=== PATIENT | male | born 1935 | race Caucasian/White ===

== ENCOUNTER 2017-07-26 12:16 | Inpatient (IN) | payer MEDICARE, BC ==
[~2017-07-26] VITALS: Ht 165.1 cm; Wt 63.3 kg
--- NOTE | ~2017-07-26 | HEMODYNAMI ---
PATIENT:EMILEE CHAPA MEDICAL RECORD: [id number] : 39 LOCATION:D. D.2113 ADMISSION DATE: 07/26/17 Generatedon:07/27/201712:53 Patient name: EMILEE CHAPA Patient #: [id number] SSN: DO B: 1935 Date of study: 07/27/2017 Page: Of Hemodynamic Procedure Report Patient Data Patient Demographics Procedure consent was obtained First Name: EMILEE Gender: Male Last Name: EDUARD : 1935 [facility] Initial: REGINALD Age: 81 year(s) Patient #: [id number] Race: Unknown Additional ID: [id number] Contact details [address]: [address] [place] [address] [place] State: [place] City: [place] Zip code: [address] Past Medical History Allergies Allergen Reaction Date Comments Reported Other allergy 09/15/2015 statins Admission Admission Data Admission Date: 07/26/2017 Admission Time: 17:01 Arrival Date: 07/27/2017 Arrival Time: 17:01 Admit Source: Other Insurance Payor: Medicare Room #: D.2113 Height (in.): 64.96 BSA: 1.8 (m2) Height (cm.): 165 BMI: 26.66 (kg/m2) Weight (lbs.): 160 Weight (kg.): 72.57 Procedure Procedure Types Cath Procedure Diagnostic Procedure LHC LH w/Coronaries Temporary Pacemaker Sedation Charges Moderate Sedation up to 30 minutes Procedure Description Procedure Date Procedure Date: 07/27/2017 Procedure Start Time: 12:28 Procedure End Time: 12:49 Procedure Staff Name Function Robinson Abdalla MD Performing Physician Renetta Glaser RT Monitor Jeremy Garza RN Nurse Sisi Lopez RT Scrub Procedure Data Cath Procedure Fluoroscopy Diagnostic fluoroscopy Total fluoroscopy Time: 3 time: 3 min min Diagnostic fluoroscopy Total fluoroscopy dose: 339 dose: 339 mGy mGy Contrast Material Contrast Material Type Amount (ml) Isovue 300 48 Entry Location Entry Primary Successful Side Size Upsize Upsize Entry Closure Succes sful Closure Location (Fr) 1 (Fr) 2 (Fr) Remarks Device Remarks Femoral Right 5 Fr Exoseal artery Femoral Right 6 Fr Sheath vein Short sutured in place Estimated blood loss: 5 ml Diagnostic catheters Device Type Used For End Catheter Placement MULTIPACK JL 4.0 5Fr Left Coronary catheter Angiography MULTIPACK 3DRC 5Fr Right Coronary catheter Angiography MULTIPACK Pigtail 5 Fr LV Angiography catheter Procedure Complications No complications Procedure Medications Medication Administration Route Dosage Oxygen NC 3 l/min Lidocaine 2% added to field 20 Heparin Flush Bag added to field 2 bags (1000units/500ml NS) 0.9% NaCl I.V. 100 ml/hr Versed I.V. 0.5 mg Fentanyl I.V. 25 mcg Oxygen 16 l/min Epinephrine I.V. 1 mg Amiodarone Loading 150 mg Dose (150mg/100ml D5W) Atropine I.V. 1 mg Oxygen NRB 16 l/min Hemodynamics Rest BSA: 1.8 (m2) O2 Consumption: Estimated: 173.62 (ml/min) O2 Consumption indexed: Estimated:96.46 (ml/min/m) Heart Rate: 23 (bpm) Pressure Samples Time Site Value (mmHg) Purpose Heart Use Rate(bpm) 12:39 LV 108/17,27 Snapshot 106 12:40 AO 92/45(62) Pullback 66 12:40 LV 85/17,33 Pullback 66 Gradients Valve Time Site 1 Site 2 Mean SEP/DFP Peak To Heart Use (mmHg) (sec/min) Peak Rate (mmHg) (bpm) Aortic 12:40 LV AO 0 8 0 66 85/17,33 92/45(62) Calculations Valve P-P Mean Valve Index Valve Source Name Gradient Area Flow (cm2) Aortic 0 0 0 0 Snapshots Pre Cath Intra NCS Post Cath Vital Signs Time Heart Resp SPO2 NIBP (mmHg) Rhythm Pain Sedation Rate (ipm) (%) Status Level (bpm) 12:14:50 115 20 97 103/66(86) NSR 0 (11) 9(A) , No pain 12:18:54 112 21 98 101/66(77) NSR 0 (11) 9(A) , No pain 12:22:58 119 20 96 104/66(81) NSR 0 (11) 9(A) , No pain 12:27:03 118 22 96 87/62(69) NSR 0 (11) 9(A) , No pain 12:32:05 31 24 95 76/56(72) NSR 0 (11) 9(A) , No pain 12:35:56 104 22 94 170/103(128) NSR 0 (11) 9(A) , No pain 12:40:12 64 23 100 131/57(85) NSR 0 (11) 9(A) , No pain 12:44:22 79 25 94 64/39(50) NSR 0 (11) 9(A) , No pain 12:48:19 75 24 93 64/37(47) NSR 0 (11) 9(A) , No pain Medications Time Medication Route Dose Verified Delivered Reason Notes E ffectiveness by by 12:14:07 Oxygen NC 3 Robinson Jeremy used for l/min St Nilson Garza RN procedure 12:14:14 Lidocaine 2% added 20ml Robinson Bowers for local to vial [facility] anesthetic field MD RAY 12:14:20 Heparin Flush added 2 Robinson Bowers used for Bag to bags [facility] procedure (1000units/500ml field MD RAY NS) 12:14:46 0.9% NaCl I.V. 100 Robinson Luna Per ml/hr St Nilson villanueva MD 12:16:28 Versed I.V. 0.5 Robinson Luna for sedation mg St Nilson Garza RN, MD 12:16:37 Fentanyl I.V. 25 Robinson Luna for sedation mcg St Nilson Garza RN, MD 12:32:52 Atropine I.V. 1 mg [address] Luna For [facility] Nilson Garza RN bradycardia 12:33:35 Oxygen Ambu in 16 Robinson Luna unresponsive use l/min St Nilson Garza RN, MD 12:33:42 Epinephrine I.V. 1 mg Robinson Nicolas RN, MD 12:35:15 Oxygen NRB 16 Robinson Vergaraie Per l/min St Nilson villanueva MD 12:40:03 Amiodarone over 10 150 Robinson Luna Per Loading Dose minutes mg St Nilson Garza RN physician (150mg/100ml D5W) Procedure Log Time Note 12:00:30 Jeremy Garza RN sent for patient. Start room use. 12:13:36 Time tracking: Regular hours 12:13:40 Plan of Care:Hemodynamics will remain stable., Cardiac rhythm will remain stable., Comfort level will be maintained., Respiratory function will remain adequate., Patient/ family verbilizes understanding of procedure., Procedure tolerated without complication., Recovers from procedure without complications.. 12:13:44 Patient received from Med II to CCL 2 Alert and oriented. Tansferred to table in Supine position. 12:13:45 Warm blankets applied, and singh hugger turned on for patient comfort. 12:13:45 Correct patient and procedure confirmed by team. 12:13:46 Signed procedure consent form obtained from patient. 12:13:47 ECG and BP/O2 sat monitors applied to patient. 12:13:48 Vital chart was started 12:13:49 Baseline sample Acquired. 12:14:04 Full Disclosure recording started 12:14:07 Oxygen 3 l/min NC was administered by Jeremy Garza RN; used for procedure; 12:14:08 H&P Date Dictated: 07/27/2017 Within 30 days and on chart., H&P Addendum completed by physician on day of procedure. (MUST COMPLETE FOR ALL OUTPATIENTS). 12:14:09 Pre-procedure instructions explained to patient. 12:14:10 Pre-op teaching completed and patient verbalized understanding. 12:14:11 Family in waiting room. 12:14:12 Patient NPO since Midnight. 12:14:14 Lidocaine 2% 20ml vial added to field was administered by Robinson Abdalla MD; for local anesthetic; 12:14:20 Heparin Flush Bag (1000units/500ml NS) 2 bags added to field was administered by Robinson Abdalla MD; used for procedure; 12:14:21 Is the patient allergic to Iodine/contrast media? No. 12:14:22 Was the patient premedicated? No 12:14:32 Is patient on blood thinner?Yes 12:14:35 ACC The patient was administered the following blood thiners within the last 24 hours: ACCAspirin 12:14:37 Patient diabetic? No. 12:14:39 Previous problem with sedation/anesthesia? No ? 12:14:42 Snore? Yes 12:14:42 Sleep apnea? No 12:14:43 Deviated septum? No 12:14:44 Opens mouth fully? Yes 12:14:45 Sticks out tongue? Yes 12:14:46 0.9% NaCl 100 ml/hr I.V. was administered by Jeremy Garza RN; Per physician; 12:14:48 Airway obstruction? No ? 12:14:54 Dentures? No ? 12:14:58 Pre procedure: right dorsailis pedis pulse 1+ Palpable, but thready & weak; easily obliterated 12:15:00 Pre procedure: left dorsailis pedis pulse 1+ Palpable, but thready & weak; easily obliterated 12:15:02 Patient pain scale 0/10 ?. 12:15:08 IV patent on arrival in left antecubital with 0.9% NaCl at [facility]. 12:15:11 Lab results completed and on chart. 12:15:14 Right groin area was prepped with chlora-prep and draped in sterile fashion 12:15:15 Alarms reviewed by R. N. 12:15:15 Sharps counted by scrub and verified by R.N. 12:15:16 Physician arrived 12:15:16 --------ALL STOP TIME OUT------ 12:15:17 Final Timeout: patient, procedure, and site verified with staff and physician. All members of the team are in agreement. 12:15:19 Right groin site verified by team. 12:15:22 Physical assessment completed. ASA score P 2 - A patient with mild systemic disease as per Robinson Abdalla MD. 12:15:25 Sedation plan: IV Moderate Sedation Medication:Versed, Fentanyl 12:15:29 Use device set Femoral Dx 12:15:31 ACIST Syringe (75274) opened to sterile field. 12:15:31 Bag Decanter (2002) opened to sterile field. 12:15:31 Medline Cath Pack ([id number]) opened to sterile field. 12:15:32 SHEATH 5FR [place] (ALF593) opened to sterile field. 12:15:34 DIAGNOSTIC WIRE .035 260cm J wire (982296) opened to sterile field. 12:15:35 ACIST Hand Control (47046) opened to sterile field. 12:15:35 ACIST Manifold (85873) opened to sterile field. 12:15:36 DIAGNOSTIC Multipack 5Fr catheter set (GT3118) opened to sterile field. 12:15:36 Tegaderm 4 x 4 (1626W) opened to sterile field. 12:16:28 Versed 0.5 mg I.V. was administered by Jeremy Garza RN; for sedation; 12:16:37 Fentanyl 25 mcg I.V. was administered by Jeremy Garza RN; for sedation; 12:18:32 Admit Source: Other 12:18:36 Patient Weight : 160 lbs 12:18:40 Patient Height : 64.96 inches 12:18:44 Arrival Date: 07/27/2017 5:01:00 PM 12:18:54 Insurance Payor : Medicare 12:24:00 Zero performed for pressure channel P1 12:28:10 Procedure started. 12:28:15 Local anesthetic to right femoral artery with Lidocaine 2% by Robinson Abdalla MD.INITIAL ACCESS ONLY 12:28:30 A 5 Fr sheath was inserted into the Right Femoral artery 12:29:13 A MULTIPACK JL 4.0 5Fr catheter was advanced over the wire and used for Left Coronary Angiography. 12:32:52 Atropine 1 mg I.V. was administered by Jeremy Garza RN; For bradycardia; 12:33:35 Oxygen 16 l/min Ambu in use was administered by Jeremy Garza RN; unresponsive ; 12:33:42 Epinephrine 1 mg I.V. was administered by Jeremy Garza RN; ; 12:34:09 patient went asystole;cpr started 12:34:24 SHEATH 6FR [place] (GSK855) opened to sterile field. 12:34:25 Quick Combo opened to sterile field. 12:34:30 Quick combo pads placed on patients chest and back. 12:34:52 A 6 Fr Short sheath was inserted into the Right Femoral vein 12:35:10 5Fr J Tip Temporary Pacing Catheter ([id number]) opened to sterile field. 12:35:15 Oxygen 16 l/min NRB was administered by Jeremy Garza RN; Per physician; 12:35:29 Temporary pacer inserted 12:35:42 Temporary pacer turned on with the following settings: Rate 80, MA 4, Mode: Demand. 12:36:13 patient has rythym and pressure; continuing cath 12:36:33 LCA angiography performed. 12:36:36 Injector settings: Ml/sec: 3, Volume: 6, 12:37:03 Catheter removed. 12:37:15 A MULTIPACK 3DRC 5Fr catheter was advanced over the wire and used for Right Coronary Angiography. 12:37:50 RCA angiography performed. 12:37:53 Injector settings: Ml/sec: 3, Volume: 6, 12:38:32 Catheter removed. 12:38:36 A MULTIPACK Pigtail 5 Fr catheter was advanced over the wire and used for LV Angiography. 12:39:46 LV hemodynamics recorded. 12:39:48 LV gram done using MALIK 12:39:50 Injector settings: Ml/sec: 5, Volume: 15, 12:40:03 Amiodarone Loading Dose (150mg/100ml D5W) 150 mg over 10 minutes was administered by Jeremy Garza RN; Per physician; 12:41:08 Catheter removed. 12:41:58 Temporary pacer turn off 12:42:04 Temporary pacer turned on with the following settings: Rate 80, MA 5, Mode: Demand. 12:43:55 2-0 Ticron Multipack ([id number]) opened to sterile field. 12:44:36 Sheath removed intact; hemostasis achieved with Sheath sutured in place to the Right Femoral vein. 12:44:56 Sheath removed intact; hemostasis achieved with Exoseal to the Right Femoral artery. 12:45:00 Procedure ended.(Physican Out) 12:45:15 Fluoroscopy time 03.00 minutes. 12:45:20 Fluoroscopy dose: 339 mGy 12:45:20 Flurop Dose total: 339 12:45:44 Contrast amount:Isovue 300 48ml. 12:45:45 Sharps counted by scrub and verified by R.N. 12:45:48 Insertion/operative site no bleeding no hematoma. 12:46:30 Post right femoral vein:stable 12:46:32 Post Procedure Pulses reassessed and unchanged 12:46:34 Post procedure rhythm: unchanged. 12:46:37 Estimated blood loss: 5 ml 12:46:53 Post procedure instruction explained to patient.Patient verbalizes understanding. 12:47:45 Patient needs reinforcement of post procedure teaching. 12:48:30 Procedure type changed to Cath procedure, Diagnostic procedure, LHC, LHC w/Coronaries, Temporary Pacemaker, Sedation Charges, Moderate Sedation up to 30 minutes 12:49:15 Procedure and supply charges have been captured, reviewed, submitted and are correct. 12:49:18 Procedure Complication : No complications 12:49:20 Vital chart was stopped 12:49:20 See physician's report for complete and final results. 12:49:24 Report given to CVICU. 12:49:26 Patient transfered to CVICU with Stretcher. 12:49:28 Procedure ended. 12:49:28 Full Disclosure recording stopped 12:50:05 End room use (Document Last) Device Usage Item Name Manufacture Quantity Catalog Hospital Part Current Minim al Lot# / Number Charge Number Stock Stock Serial# Code ACIST Acist 1 46870 051597 286039 603462 20 Syringe Medical (26094) Systems Inc Bag Decanter Microtek 1 2001S 206680 95681 816486 5 (2001S) Medical Inc. Medline Cath Cardinal 1 [id number] 923787 28804 653026 5 Pack Health ([id number]) SHEATH 5FR Terumo 1 ZEU601 033955 896025 659996 40 [place] (BMY392) DIAGNOSTIC St Moshe 1 891093 607949 107978 308237 30 WIRE .035 260cm J wire (587227) ACIST Hand Acist 1 05035 405936 187844 726379 5 Control Medical (25642) Systems Inc ACIST Acist 1 15966 958221 164626 079758 5 Manifold Medical (51067) Systems Inc DIAGNOSTIC Cardinal 1 SK5569 949590 49691 088886 30 Multipack Health 5Fr catheter set (NX4491) Tegaderm 4 x 3M 1 1626W 642551 347572 812135 5 4 (1626W) MULTIPACK JL Cardinal 1 270197 5 4.0 5Fr Health catheter SHEATH 6FR Terumo 1 [id number] 575228 110146 808522 40 [place] (QHX430) Quick Combo Edge Systems 1 22001-270004 292215 155980 076104 5 5Fr J Tip Anaya 1 [id number] 827655 46183 058251 2 Temporary Lifesciences Pacing Catheter ([id number]) MULTIPACK Cardinal 1 041632 5 3DRC 5Fr Health catheter MULTIPACK Cardinal 1 794473 5 Pigtail 5 Fr Health catheter 2-0 Ticron Ethicon 8 [id number] 126420 71268 634181 5 Multipack ([id number]) Signature Audit [place] Stage Time Signature Unsigned Intra-Procedure 07/27/2017 Renetta Glaser 12:53:32 PM RT(R) Signatures Monitor : Renetta Glaser RT Signature : Date : Time : [facility] [address] [place] [address]
--- NOTE | ~2017-07-26 | OP ---
PATIENT NAME: EMILEE CHAPA MEDICAL RECORD: [id number] :39 LOCATION:MAGY [facility].CV02 ADMISSION DATE:07/26/17 SURGEON: HEATHER WALLACE MD DATE OF OPERATION: 07/27/2017 PROCEDURE: Left heart catheterization, selective coronary angiography, temporary pacer, right femoral artery and vein approach respectively. CATHETERS: Used 5-Comoran sheath on the arterial side, 6-Comoran on the venous side. The patient was returned to the ICU in critical, unstable condition. FINDINGS: Left ventriculography, 30-degree MALIK view shows severe global hypokinesis with reduced EF less than 20%. CORONARY ANATOMY: LEFT MAIN: Left main is free of disease. LAD: Free of disease in the diagonal system. CIRCUMFLEX: Free of disease in the marginal system. RIGHT CORONARY ARTERY: Dominant artery, gives rise to PDA, free of disease. IMPRESSION: Severe nonischemic cardiomyopathy. Before the procedure was started, the patient went into asystole. Temporary wires were placed under fluoroscopic guidance in the RV apex. After adequate thresholds the same was sewn in place. The patient was moved to ICU in critical and possibly terminal condition. Significant risk for morbidity and mortality. TRANSINT:[id number] Voice Confirmation ID: [id number] DOCUMENT ID: [id number] HEATHER WALLACE MD at 1005 CC: [id number] DICTATION DATE: 07/27/17 1253 FLAT CLOTHIER: 07/27/17 1314 DIS IN 07/27/17 [id number] [place] [address]
--- NOTE | ~2017-07-26 | CN ---
PATIENT NAME:MANISH JANE MEDICAL RECORD: [id number] : 39 LOCATION:D. D.2113 ADMIT DATE: 07/26/17 ACCOUNT: [id number] CONSULTING PHYSICIAN: HEATHER WALLACE MD REFERRING PHYSICIAN: NAHUN MORALES DO DATE OF CONSULTATION: 07/27/2017 Cardiology Consultation HISTORY OF PRESENT ILLNESS: Manish Jane is a 81-year-old gentleman with known history of coronary artery disease as well as cerebrovascular disease status post stenting and CVA, who presented with just generalized malaise, fatigue and not feeling well. He had markedly elevated cardiac enzymes consistent with non-ST elevation myocardial infarction. He does have renal insufficiency; however, these are somewhat in excess of what I expect to see with current creatinine. PAST MEDICAL HISTORY: Includes: 1. History of cerebrovascular disease status post CVA. 1. Hypertension. 2. Hyperlipidemia. ALLERGIES: STATINS. MEDICATIONS: Typically include Diovan HCT 160/12.5, Aggrenox 25/200 b.i.d. SOCIAL HISTORY: He is , does have some trouble with ADLs secondary to previous CVAs. REVIEW OF SYSTEMS: The patient reports easy bruising but reports no swollen glands. The patient reports no fever, no night sweats, no significant weight gain, no significant weight loss. No significant exercise tolerance. The patient reports no dry eyes, no irritation, no vision change. Patient reports no difficulty hearing and no ear pain. Patient reports no frequent nose bleeds or nose and sinus problems. Patient reports on arm pain on exertion. No shortness of breath while lying down. No history of heart murmur. Patient reports no cough, no wheezing or coughing up blood. Patient reports no abdominal pain, no vomiting. Normal appetite. No diarrhea and not vomiting blood. No nausea and no constipation. Patient reports no incontinence. No difficulty urinating. No hematuria. No increased frequency. Patient reports no muscle aches. No weakness, no arthralgias, no back pain. No swelling of the extremities. Patient reports no abnormal mole, no jaundice, no rashes. Reports no loss of consciousness. No weakness and no numbness. No seizures, dizziness, or headaches. The patient reports no depression, no sleep disturbance, feeling safe in a relationship and no alcohol abuse. Patient reports on fatigue. Reports no runny nose or sinus pressure. No itching, no hives, and no frequent sneezing. PHYSICAL EXAMINATION: GENERAL: Pleasant gentleman in no acute distress. VITAL SIGNS: Blood pressure 102/58, pulse 111 and regular. HEENT: Normocephalic, atraumatic. NECK: No bruits are noted. HEART: Somewhat tachycardic, regular. A II/ systolic ejection murmur. LUNGS: Fair air excursion, slight prolonged expiratory phase. CONSULT REPORT [id number] MANISH JANE ABDOMEN: Soft, nontender. EXTREMITIES: Pulse 2+ with no edema. DIAGNOSTIC DATA: ECG with nonspecific ST-T wave changes. IMPRESSION: Suspect most enzymes consistent with non-ST elevation myocardial infarction. PLAN: Diagnostic angiography, intervention based on above. TRANSINT:[id number] Voice Confirmation ID: [id number] DOCUMENT ID: [id number] HEATHER WALLACE MD at 1155 CC: [id number] DICTATION DATE: 07/27/17 0848 WEAVER HAND: 07/27/17 1022 ADM IN [address] [place] [address]
[~2017-07-26 12:16] MED LIST: BAYER CHEWABLE81 MG PO; DIOVAN HCT 160/1 TAB PO; FLUTICASONE PRO16 GM NASAL; GARLIC1 CAP PO; JUBLIA 10%; MAGNESIUM OXID250 MG PO; PLAVIX75 MG PO; PREVAGEN; VITAMIN D31000 UNI2 PO
[2017-07-26 14:35] LABS: BASOPHILS 0.1 % (0-2); EOSINOPHILS 0.1 % (0-7); HEMATOCRIT 36.3 % (42.0-54.0); HEMOGLOBIN 12.4 g/dL (13.5-17.5); IMMATURE GRANULOCYTES 0.1 % (0-5); LYMPHOCYTES 6.5 % (15-50); MCH 32.1 pg (26.0-34.0); MCHC 34.2 g/dL (31.0-37.0); MEAN PLATELET VOLUME 10.1 fL (7.4-10.4); MONOCYTES 14.7 % (2-11); NEUTROPHILS 78.5 % (40-80); PLATELET COUNT 202 10x3/uL (130-400); RBC 3.86 10x6/uL (4.20-6.10); WBC 7.5 10x3/uL (4.8-10.8)
[2017-07-26 14:51] LABS: INR 0.9 (0.85-1.17); PROTIME 11.8 SECONDS (11.6-15.0)
[2017-07-26 14:57] LABS: ALBUMIN 3.1 g/dL (3.4-5.0); ALKALINE PHOSPHATASE 88 U/L (46-116); ALT (SGPT) 49 U/L (10-68); BILIRUBIN - TOTAL 0.38 mg/dL (0.2-1.3); CALC OSMOLALITY 292 mosm/kg (275-300); CARBON DIOXIDE 24.5 mmol/L (21.0-32.0); CHLORIDE - SERUM 100 mmol/L (98-107); CREATININE - SERUM 2.5 mg/dL (0.6-1.3); POTASSIUM - SERUM 4.5 mmol/L (3.5-5.1); PROTEIN - SERUM 7.5 g/dL (6.4-8.2); SODIUM 136 mmol/L (136-145); UREA NITROGEN 62 mg/dL (7-18); eGFR NON AFRICAN AMERICAN 27 mL/min (90-120)
[2017-07-26 14:58] LABS: APPEARANCE HAZY (CLEAR); BILIRUBIN NEGATIVE (NEGATIVE); COLOR YELLOW (YELLOW); GLUCOSE NEGATIVE (NEGATIVE); KETONE NEGATIVE (NEGATIVE); NITRITE NEGATIVE (NEGATIVE); PROTEIN 1+ mg/dL (NEGATIVE); UROBILINOGEN NORMAL (NORMAL)
[2017-07-26 15:02] LABS: GLUCOSE 152 mg/dL (74-106)
[2017-07-26 15:06] LABS: WHITE CELLS - URINE 0-5 /hpf (0-5)
[2017-07-26 15:07] LABS: BACTERIA MODERATE /hpf (NONE SEEN)
[2017-07-26 15:08] LABS: GRANULAR CAST RARE /lpf (NONE SEEN)
[2017-07-26 15:18] LABS: CREATINE KINASE 428 UL (21-232); LIPASE 59 U/L (73-393); MAGNESIUM - SERUM 2.2 mg/dL (1.8-2.4)
[2017-07-26 15:42] LABS: TROPONIN-I 23.303 ng/mL (0.000-0.060)
[2017-07-26 15:57] LABS: PRO BNP 57138 pg/mL (0-450)
[2017-07-26] MEDS ORDERED: HYTRIN5 MG PO (18:19)
[2017-07-26] MEDS ORDERED: AGGRENOX 200/251 CAP PO (18:20)
[2017-07-26 20:00] VITALS: BP 98/62
[2017-07-27] VITALS (18 sets, daily range): BP systolic 51–108; BP diastolic 32–71; Ht 165.1 cm; Wt 63.3 kg
[2017-07-27 03:19] LABS: BASOPHILS 0.2 % (0-2); EOSINOPHILS 0.3 % (0-7); HEMATOCRIT 31.7 % (42.0-54.0); HEMOGLOBIN 10.7 g/dL (13.5-17.5); IMMATURE GRANULOCYTES 0.3 % (0-5); LYMPHOCYTES 6.2 % (15-50); MCH 31.2 pg (26.0-34.0); MCHC 33.8 g/dL (31.0-37.0); MCV 92.4 fL (80.0-100.0); MEAN PLATELET VOLUME 9.9 fL (7.4-10.4); MONOCYTES 17.4 % (2-11); NEUTROPHILS 75.6 % (40-80); PLATELET COUNT 183 10x3/uL (130-400); RBC 3.43 10x6/uL (4.20-6.10); RDW 13.9 % (11.5-14.5); WBC 6.3 10x3/uL (4.8-10.8)
[2017-07-27 03:33] LABS: ALBUMIN 2.5 g/dL (3.4-5.0); ANION GAP 17.4 mmol/L (8-16); BILIRUBIN - TOTAL 0.66 mg/dL (0.2-1.3); CALCIUM 8.3 mg/dL (8.5-10.1); CARBON DIOXIDE 21.8 mmol/L (21.0-32.0); CREATININE - SERUM 2.3 mg/dL (0.6-1.3); POTASSIUM - SERUM 4.2 mmol/L (3.5-5.1); PROTEIN - SERUM 6.4 g/dL (6.4-8.2)
== END 2017-07-27 19:35 ==
LOC: D.ER 12:16 → D.M2 17:01 → D.CVICU 07-27 13:26
PROVIDERS: Family Medicine; Internal Medicine Interventional Cardiology; Nurse Practitioner Family
PROC: 5A1223Z Performance of Cardiac Pacing, Continuous (ICD-10-PCS; 2017-07-27)
PROC: B2111ZZ Fluoroscopy of Multiple Coronary Arteries using Low Osmolar Contrast (ICD-10-PCS; principal; 2017-07-27 12:45)
PROC: 4A023N7 Measurement of Cardiac Sampling and Pressure, Left Heart, Percutaneous Approach (ICD-10-PCS; 2017-07-27 12:45)
DX: I21.4 Non-ST elevation (NSTEMI) myocardial infarction (principal); J18.9 Pneumonia, unspecified organism; R40.2124 Coma scale, eyes open, to pain, 24 hours or more after hospital admission; R40.2214 Coma scale, best verbal response, none, 24 hours or more after hospital admission; N17.9 Acute kidney failure, unspecified; I42.9 Cardiomyopathy, unspecified; I25.10 Atherosclerotic heart disease of native coronary artery without angina pectoris; I10 Essential (primary) hypertension; E78.5 Hyperlipidemia, unspecified; F10.10 Alcohol abuse, uncomplicated; N40.0 Benign prostatic hyperplasia without lower urinary tract symptoms; Z86.73 Personal history of transient ischemic attack (TIA), and cerebral infarction without residual deficits; Z85.46 Personal history of malignant neoplasm of prostate; Z87.891 Personal history of nicotine dependence; R40.2354 Coma scale, best motor response, localizes pain, 24 hours or more after hospital admission